=== PATIENT | female | born 1995 | race Caucasian/White ===

== ENCOUNTER 2021-10-19 07:45 | Outpatient (CLI) | payer OTHER, SELFPAY ==
--- NOTE | 2021-10-19 07:50 | US_ITS ---
STUDY: ULTRASOUND OF THE FEMALE PELVIS - COMPLETE REASON FOR EXAM: Female, 26 years old. Infertility LMP: 09/25/2021. TECHNIQUE: Transabdominal and Transvaginal TECHNICAL QUALITY: Adequate. COMPARISON: None. FINDINGS: The uterus is retroverted and is in a midline position. The uterus measures 7.2 cm x 5.2 cm x 4.8 cm. Normal uterine cervix. The endometrium measures 15 mm in thickness, and is hyperechoic. There is no demonstrated endometrial mass. There is no demonstrated myometrial mass. I.U.D. - The patient does not have an I.U.D. The right ovary is visualized. The right ovary measures 2.7 cm x 3.1 cm x 2.5 cm. A dominant follicle is seen in the right ovary measuring 1.9 cm x 1.8cm x 1.6 cm. There is no visualized right adnexal mass or complex lesion. There is normal arterial and normal venous vascularity. The left ovary is visualized. The left ovary measures 2.6 cm x 2.4 cm x 1.4 cm. There is no left ovarian cyst or ovarian mass. There is no visualized left adnexal mass or complex lesion. There is normal arterial and normal venous vascularity. There is minimal fluid in the cul-de-sac. The pre void volume of the bladder was 446 ml. US/Pelvic (Non ) IMPRESSION: A dominant follicle measuring 1.9 cm x 1.8 cm x 1.6 cm is seen in the right ovary. Trace amount of free fluid in the cul-de-sac. Electronically Signed: Gianfranco Herndon MD at 12:13 EST ,
--- NOTE | 2021-10-19 07:50 | US_ITS ---
STUDY: ULTRASOUND OF THE FEMALE PELVIS - COMPLETE REASON FOR EXAM: Female, 26 years old. Infertility LMP: 09/25/2021. TECHNIQUE: Transabdominal and Transvaginal TECHNICAL QUALITY: Adequate. COMPARISON: None. FINDINGS: The uterus is retroverted and is in a midline position. The uterus measures 7.2 cm x 5.2 cm x 4.8 cm. Normal uterine cervix. The endometrium measures 15 mm in thickness, and is hyperechoic. There is no demonstrated endometrial mass. There is no demonstrated myometrial mass. I.U.D. - The patient does not have an I.U.D. The right ovary is visualized. The right ovary measures 2.7 cm x 3.1 cm x 2.5 cm. A dominant follicle is seen in the right ovary measuring 1.9 cm x 1.8cm x 1.6 cm. There is no visualized right adnexal mass or complex lesion. There is normal arterial and normal venous vascularity. The left ovary is visualized. The left ovary measures 2.6 cm x 2.4 cm x 1.4 cm. There is no left ovarian cyst or ovarian mass. There is no visualized left adnexal mass or complex lesion. There is normal arterial and normal venous vascularity. There is minimal fluid in the cul-de-sac. The pre void volume of the bladder was 446 ml. US/Transvaginal Non- IMPRESSION: A dominant follicle measuring 1.9 cm x 1.8 cm x 1.6 cm is seen in the right ovary. Trace amount of free fluid in the cul-de-sac. Electronically Signed: Gianfranco Herndon MD at 12:13 EST ,
== END 2021-10-19 23:59 | disposition home or self-care (01) ==
LOC: US 07:47
PROVIDERS: Referring Provider Obstetrics & Gynecology; Visit Provider Obstetrics & Gynecology
DX: N94.6 Dysmenorrhea, unspecified (principal)
CPT/HCPCS: 76830; 76856

== ENCOUNTER 2021-11-25 10:29 | Outpatient (CLI) | payer OTHER, SELFPAY ==
[2021-11-25 11:48] LABS: Prolactin 16.7 ng/mL; Thyroid Stim Hormone (TSH) 2.33 uIU/mL (0.358-3.74)
== END 2021-11-25 23:59 | disposition home or self-care (01) ==
LOC: LAB 10:31
PROVIDERS: Referring Provider Obstetrics & Gynecology; Visit Provider Obstetrics & Gynecology
DX: Z31.81 Encounter for male factor infertility in female patient (principal); N94.6 Dysmenorrhea, unspecified
CPT/HCPCS: 84146; 84443

== ENCOUNTER → 2022-07-01 | Outpatient (CLI) | payer OTHER, SELFPAY | END | disposition home or self-care (01) | LOC: LABSPEC 16:20 | PROVIDERS: Referring Provider Obstetrics & Gynecology; Visit Provider Obstetrics & Gynecology | DX: R10.9 Unspecified abdominal pain (principal) | CPT/HCPCS: 87077; 87086; 87088 ==

== ENCOUNTER → 2023-02-20 | Outpatient (CLI) | payer OTHER, SELFPAY ==
[2023-02-23 16:09] LABS: HPV APTIMA, High Risk Negative (Negative)
== END | disposition home or self-care (01) ==
LOC: LABSPEC 09:59
PROVIDERS: Referring Provider Obstetrics & Gynecology; Visit Provider Obstetrics & Gynecology
DX: Z12.4 Encounter for screening for malignant neoplasm of cervix (principal)
CPT/HCPCS: 87624; 88175; G0145

== ENCOUNTER → 2023-04-27 | Outpatient (CLI) | payer OTHER, SELFPAY ==
[2023-04-27 17:43] LABS: Absolute Lymphocyte Count 1.44 X10^3/uL (0.83-4.51); Absolute Neutrophil Count 3.8 X10^3/uL (2.0-7.7); Basophil# 0.06 X10^3/uL; Eosinophil# 0.37 X10^3/uL; Hematocrit 44.2 % (37-47); Hemoglobin 13.7 g/dL (12.0-15.0); Lymphocyte # 1.44 X10^3/ul (0.83-4.51); Lymphocyte % 23.3 % (19-41); Mean Corpuscular Hgb 26.4 pg (27.0-32.0); Mean Corpuscular Volume 85.3 fL (81-99); Mean Platelet Vol. 11.6 fl (6.2-12.0); Monocyte# 0.49 X10^3/uL; Monocyte% 7.9 % (0-10); NRBC Flagged by Analyzer 0 % (0-5); Neutrophil # 3.81 X10^3/uL (2.7-7.7); Neutrophil % 61.6 % (47-70); Platelet Count 240 K/mm3 (150-450); RBC Distribution Width CV 12.7 % (11.6-14.6); RBC Distribution Width SD 39.5 fl (35.1-43.9); Red Blood Count 5.18 M/mm3 (4.2-5.4); White Blood Count 6.2 K/mm3 (4.4-11.0)
[2023-04-27 17:58] LABS: Erythrocyte Sedimentation Rate 9 mm/hr (0-30)
[2023-04-27 18:10] LABS: Vitamin B12 497 pg/mL (211-911)
[2023-04-27 18:32] LABS: ALB/GLOB Ratio 1.3 RATIO (0.9-2.4); AST(SGOT) 16 U/L (15-37); Alanine Aminotransfer ALT/SGPT 24 U/L (13-56); Albumin, Serum 4.4 g/dL (3.2-5.0); Alkaline Phosphatase 39 U/L (45-117); Anion Gap 7 (5-15); BUN 8 mg/dL (7-18); BUN/Creat Ratio 11.2 RATIO (10-20); CRP < 2.90 mg/L (0.0-3.0); Calcium,Total 9.5 mg/dL (8.5-10.1); Chloride 105 mmol/L (98-107); Creatinine, Serum 0.71 mg/dL (0.55-1.02); EST Glomerular Filtration Rate 102 mL/min (>60); Est Glom Filt Rate - Afr Amer 124 mL/min (>60); Ferritin 11 ng/mL (8-252); Globulin 3.3 g/dL (2.2-4.2); Glucose 100 mg/dL (74-106); Magnesium 2.5 mg/dL (1.6-2.6); Potassium 3.9 mmol/L (3.5-5.1); Protein, Total 7.7 g/dL (6.4-8.2); Rheumatoid Factor < 10.0 IU/mL (<15); Sodium Level 138 mmol/L (136-145); Thyroid Stim Hormone (TSH) 1.27 uIU/mL (0.358-3.74)
[2023-05-01 15:07] LABS: ANTINUCLEAR ANTIBODIES DIRECT Positive (Negative); Anti-Centromere B Ab 0.5 AI (0.0-0.9); Anti-Chromatin <0.2 AI (0.0-0.9); Anti-Jo <0.2 AI (0.0-0.9); Anti-Scleroderma-70 AB <0.2 AI (0.0-0.9); Anti-dsDNA Ab <1 IU/mL (0-9); SJOGREN'S Anti-SS-A test < 0.2 AI (0.0-0.9); SJOGREN'S Anti-SS-B test < 0.2 AI (0.0-0.9); Smith Ab <0.2 AI (0.0-0.9)
== END | disposition home or self-care (01) ==
LOC: MFPLAB 15:24
PROVIDERS: PCP Family Medicine; Visit Provider Family Medicine
DX: M25.50 Pain in unspecified joint (principal)
CPT/HCPCS: 36415; 80053; 82306; 82607; 82728; 83735; 84443; 85025; 85652; 86038; 86140; 86225; 86235; 86431

== ENCOUNTER → 2023-05-30 | Outpatient (CLI) | payer OTHER, SELFPAY | END | disposition home or self-care (01) | LOC: LABSPEC 15:19 | PROVIDERS: PCP Family Medicine; Referring Provider Advanced Practice Midwife; Visit Provider Advanced Practice Midwife | DX: R30.0 Dysuria (principal) | CPT/HCPCS: 87077; 87086; 87088; 87186 ==

== ENCOUNTER → 2023-12-06 | Outpatient (CLI) | payer OTHER, SELFPAY ==
[2023-12-10 10:07] LABS: Chlamydia By Nucleic Acid AMP Negative (Negative); Gonococcus By Nucleic Acid AMP Negative (Negative)
== END | disposition home or self-care (01) ==
LOC: LAB 14:06
PROVIDERS: PCP Family Medicine; Referring Provider Registered Nurse; Visit Provider Registered Nurse
DX: O09.90 Supervision of high risk pregnancy, unspecified, unspecified trimester (principal); Z3A.00 Weeks of gestation of pregnancy not specified
CPT/HCPCS: 87086; 87491; 87591

== ENCOUNTER → 2023-12-19 | Outpatient (CLI) | payer OTHER, SELFPAY ==
[2023-12-19 08:23] LABS: Absolute Lymphocyte Count 1.89 X10^3/uL (0.83-4.51); Absolute Neutrophil Count 6.7 X10^3/uL (2.0-7.7); Basophil# 0.04 X10^3/uL; Basophil% 0.4 % (0-1); Eosinophil# 0.14 X10^3/uL; Eosinophils% 1.5 % (0-5); Hematocrit 37.9 % (37-47); Hemoglobin 12.4 g/dL (12.0-15.0); Lymphocyte # 1.89 X10^3/ul (0.83-4.51); Lymphocyte % 19.8 % (19-41); Mean Corp Hgb Conc 32.7 g/dL (32-36); Mean Corpuscular Hgb 27.6 pg (27.0-32.0); Mean Corpuscular Volume 84.4 fL (81-99); Monocyte# 0.79 X10^3/uL; Monocyte% 8.3 % (0-10); NRBC Flagged by Analyzer 0 % (0-5); Neutrophil # 6.65 X10^3/uL (2.7-7.7); Neutrophil % 69.8 % (47-70); Platelet Count 252 K/mm3 (150-450); RBC Distribution Width SD 36.6 fl (35.1-43.9); Red Blood Count 4.49 M/mm3 (4.2-5.4); White Blood Count 9.5 K/mm3 (4.4-11.0)
[2023-12-19 09:47] LABS: HIV - WCH Non-Reactive (Nonreactive); Hepatitis B Surface Antigen Non-Reactive (Nonreactive); Hepatitis C Antibody Non-Reactive (Nonreactive); Rubella IgG Reactive (Nonreactive); Syphilis Antibodies Non-reactive
== END | disposition home or self-care (01) ==
PROVIDERS: PCP Family Medicine; Referring Provider Registered Nurse; Visit Provider Registered Nurse
DX: O09.90 Supervision of high risk pregnancy, unspecified, unspecified trimester (principal); Z3A.00 Weeks of gestation of pregnancy not specified
CPT/HCPCS: 36415; 85025; 86703; 86762; 86780; 86803; 86850; 86900; 86901; 87340

== ENCOUNTER → 2024-02-21 | Outpatient (CLI) | payer OTHER, SELFPAY ==
--- NOTE | 2024-02-21 12:18 | US_ITS ---
STUDY: SECOND AND THIRD TRIMESTER OBSTETRICAL ULTRASOUND REASON FOR EXAM: Female, 29 years old Anatomy Scan LMP: October 04, 2023. TECHNIQUE: Transabdominal and Transvaginal TECHNICAL QUALITY: Adequate. PRIOR ULTRASOUND: None. FINDINGS: There is a single intrauterine fetus. The fetus is in a cephalic presentation. There is demonstrated cardiac activity with a heart rate of 141 bpm. There is a normal amniotic fluid volume. The largest amniotic fluid pocket measures 5.7 cm x 6.7 cm. The amniotic fluid index (SHARON) is within normal limits. The placenta is posterior in location and is not low lying. There are Grade 0 placental changes. The cervix measures 3.7 cm in length. The bilateral adnexal regions are normal. BIOMETRY: BPD: 4.9 cm: 21 weeks, 0 days HC: 17.6 cm: 20 weeks, 1 days AC: 16.2 cm: 21 weeks, 2 days FL: 3.4 cm: 20 weeks, 4 days CI: 82% FL/BPD: 69% FL/HC: FL/AC: 21% HC/AC: 1.08 age by current US: 20 weeks, 5 days. GHASSAN by current US: July 05, 2024. Estimated weight: 394 grams, +/- 59 grams, 92 %. Age by LMP: 20 weeks, 5 days. GHASSAN by LMP: July 05, 2024 ANATOMY: Gender: Male Cranium: Normal lateral ventricles. Normal choroid plexus. Normal cerebellum. Normal cisterna magna. Normal face, nose and lips. Chest: Normal 4-chamber heart. Abdomen/Pelvis: Normal diaphragm. Normal stomach. Normal abdominal wall. Normal cord insertion. Normal 3 vessel cord. Normal kidneys. Normal bladder. Spine: Normal cervical spine. Normal thoracic spine. Normal lumbar spine. Normal sacrum. Extremities: Normal bilateral upper extremities. Normal bilateral lower extremities. US/OB Anatomy w/ Transvaginal IMPRESSION: Single live intrauterine gestation with mean gestational age of 20 weeks and 5 days. Electronically Signed: Gianfranco Herndon MD at 15:33 EDT ,
== END | disposition home or self-care (01) ==
LOC: OPUS 12:18
PROVIDERS: Referring Provider Obstetrics & Gynecology; Visit Provider Obstetrics & Gynecology
DX: O09.90 Supervision of high risk pregnancy, unspecified, unspecified trimester (principal); Z3A.00 Weeks of gestation of pregnancy not specified
CPT/HCPCS: 76805; 76817

== ENCOUNTER → 2024-04-17 | Outpatient (CLI) | payer OTHER, SELFPAY ==
[2024-04-17 09:01] LABS: Absolute Lymphocyte Count 1.08 X10^3/uL (0.83-4.51); Basophil# 0.03 X10^3/uL; Basophil% 0.4 % (0-1); Eosinophils% 1.2 % (0-5); Hematocrit 34.3 % (37-47); Hemoglobin 10.8 g/dL (12.0-15.0); Lymphocyte # 1.08 X10^3/ul (0.83-4.51); Lymphocyte % 13.4 % (19-41); Mean Corp Hgb Conc 31.5 g/dL (32-36); Mean Corpuscular Hgb 27.4 pg (27.0-32.0); Mean Corpuscular Volume 87.1 fL (81-99); Mean Platelet Vol. 9.6 fl (6.2-12.0); Monocyte% 9.9 % (0-10); NRBC Flagged by Analyzer 0 % (0-5); Neutrophil # 5.97 X10^3/uL (2.7-7.7); Neutrophil % 74.1 % (47-70); Platelet Count 266 K/mm3 (150-450); RBC Distribution Width CV 12.1 % (11.6-14.6); RBC Distribution Width SD 38.8 fl (35.1-43.9); Red Blood Count 3.94 M/mm3 (4.2-5.4); White Blood Count 8.1 K/mm3 (4.4-11.0)
[2024-04-17 09:26] LABS: Glucose Challenge Gest 1H 50g 110 mg/dL (70-140)
[2024-04-17 09:53] LABS: HIV - WCH Non-Reactive (Nonreactive); Syphilis Antibodies Non-reactive
== END | disposition home or self-care (01) ==
LOC: LAB 08:20
PROVIDERS: Referring Provider Nurse Practitioner Women's Health; Visit Provider Nurse Practitioner Women's Health
DX: O26.892 Other specified pregnancy related conditions, second trimester (principal); Z67.91 Unspecified blood type, Rh negative; Z3A.25 25 weeks gestation of pregnancy; Z13.1 Encounter for screening for diabetes mellitus
CPT/HCPCS: 36415; 82950; 85025; 86703; 86780; 86850; 86900; 86901

== ENCOUNTER → 2024-04-24 | Outpatient (CLI) | payer OTHER, SELFPAY ==
--- NOTE | 2024-04-24 16:25 | US_ITS ---
We are attempting to reach an attending provider to discuss findings. An addendum with communication details will be sent when the communication is complete. STUDY: SECOND AND THIRD TRIMESTER OBSTETRICAL ULTRASOUND - LIMITED REASON FOR EXAM: Female, 29 years old connective tissue disease in LMP: Established due date 07/10/2024 PRIOR ULTRASOUND: 02/21/2024 TECHNIQUE: Transabdominal TECHNICAL QUALITY: Adequate. FINDINGS: Single fetus identified in the uterus cephalic presentation. heart rate 164 bpm. Amniotic fluid index 17.23 cm. Placenta posterior. Grossly intact. No previa. Cervical length: 2.2 cm. The os is closed. BIOMETRY: BPD: 7.88 cm: 31 weeks, 4 days HC: 29.92 cm: 33 weeks, 1 days AC: 27.22 cm: 31 weeks, 2 days FL: 5.60 cm: 29 weeks, 3 days Estimated weight: 1655 grams, +/- 248 grams, 93 percentile. US/OB Limited With Biometrics IMPRESSION: Single live intrauterine at estimated gestational age 31 weeks 3 days based on composite measurements. Cervical length 2.2 cm. SAHRON 17.2. Electronically Signed: Maribell Vargas MD at 23:28 EDT ,
== END | disposition home or self-care (01) ==
LOC: US 16:25
PROVIDERS: Referring Provider Obstetrics & Gynecology; Visit Provider Obstetrics & Gynecology
DX: M35.9 Systemic involvement of connective tissue, unspecified (principal)
CPT/HCPCS: 76816

== ENCOUNTER 2024-05-01 10:50 | Outpatient (CLI) | payer OTHER, SELFPAY ==
[2024-05-01 11:30] VITALS: BMI 26.3
[2024-05-01] MEDS: Betamethasone/Betamethasone 30 MG/5 ML Vial 12 MG IM (12:02)
== END 2024-05-01 12:05 | disposition home or self-care (01) ==
LOC: WPOUT 10:54 → WP 11:12
PROVIDERS: Referring Provider Obstetrics & Gynecology; Visit Provider Obstetrics & Gynecology
DX: O36.8330 Maternal care for abnormalities of the fetal heart rate or rhythm, third trimester, not applicable or unspecified (principal); O99.013 Anemia complicating pregnancy, third trimester; O09.813 Supervision of pregnancy resulting from assisted reproductive technology, third trimester; O26.893 Other specified pregnancy related conditions, third trimester; Z67.11 Type A blood, Rh negative; O99.713 Diseases of the skin and subcutaneous tissue complicating pregnancy, third trimester; M35.89 Other specified systemic involvement of connective tissue; Z3A.30 30 weeks gestation of pregnancy; Z79.899 Other long term (current) drug therapy
CPT/HCPCS: 96372; 99221; G0378; J0702

== ENCOUNTER 2024-05-02 12:07 | Outpatient (CLI) | payer OTHER, SELFPAY ==
[2024-05-02 12:22] VITALS: BMI 26.2
[2024-05-02 12:36] VITALS: BP 110/73; PULSE 88
[2024-05-02] MEDS: Betamethasone/Betamethasone 30 MG/5 ML Vial 12 MG IM (12:41)
== END 2024-05-02 12:45 | disposition home or self-care (01) ==
LOC: WPOUT 12:09 → WP 12:10
PROVIDERS: Referring Provider Obstetrics & Gynecology; Visit Provider Obstetrics & Gynecology
DX: O36.8330 Maternal care for abnormalities of the fetal heart rate or rhythm, third trimester, not applicable or unspecified (principal); O99.013 Anemia complicating pregnancy, third trimester; O09.813 Supervision of pregnancy resulting from assisted reproductive technology, third trimester; Z67.11 Type A blood, Rh negative; O99.713 Diseases of the skin and subcutaneous tissue complicating pregnancy, third trimester; M35.89 Other specified systemic involvement of connective tissue; Z3A.30 30 weeks gestation of pregnancy; Z79.899 Other long term (current) drug therapy
CPT/HCPCS: 96372; 99221; G0378; J0702

== ENCOUNTER → 2024-05-09 | Outpatient (CLI) | payer OTHER, SELFPAY ==
--- NOTE | 2024-05-09 10:50 | US_ITS ---
STUDY: FIRST TRIMESTER OBSTETRICAL ULTRASOUND REASON FOR EXAM: Female, 29 years old cervical length -- 1 week TECHNIQUE: Transvaginal TECHNICAL QUALITY: Adequate. PRIOR ULTRASOUND: None. FINDINGS: Cervical length measures 2.5 cm. US/Transvaginal w/Preg US IMPRESSION: Cervical length measures 2.5 cm. Electronically Signed: Gianfranco Herndon MD at 13:34 EDT ,
== END | disposition home or self-care (01) ==
LOC: US 10:49
PROVIDERS: Referring Provider Obstetrics & Gynecology; Visit Provider Obstetrics & Gynecology
DX: O26.879 Cervical shortening, unspecified trimester (principal); Z3A.00 Weeks of gestation of pregnancy not specified
CPT/HCPCS: 76817

== ENCOUNTER → 2024-05-20 | Outpatient (CLI) | payer OTHER, SELFPAY ==
--- NOTE | 2024-05-20 16:29 | US_ITS ---
EXAM: US , LIMITED CLINICAL INDICATION: connective tissue disorder in TECHNIQUE: Real-time limited ultrasound of the maternal uterus with image documentation. COMPARISON: 04/24/2024. FINDINGS: FETUS: Single intrauterine gestation. GESTATIONAL AGE: Composite gestational age is 35 weeks six days. GHASSAN: 06/18/2024. EFW: Estimated weight is 2537 g corresponding to the 94th percentile. BPD: 35 weeks six days. HC: 36 weeks five days. AC: 35 weeks two days. FL: 33 weeks one day. POSITION: Cephalic presentation. HEART RATE: heart rate is 144 bpm. PLACENTA: Placenta appears to be fundal and left lateral. No evidence of placenta previa. AMNIOTIC FLUID: Amniotic fluid index is 14.1 cm. CERVIX: Cervix not visualized. US/OB Limited With Biometrics IMPRESSION: Single live intrauterine at approximately 35 weeks six days. Appropriate interval growth since previous exam. No specific abnormality. Electronically Signed: Jeramy Hanna MD at 4:29 EDT ,
== END | disposition home or self-care (01) ==
LOC: US 16:28
PROVIDERS: Referring Provider Obstetrics & Gynecology; Visit Provider Obstetrics & Gynecology
DX: M35.9 Systemic involvement of connective tissue, unspecified (principal)
CPT/HCPCS: 76816

== ENCOUNTER → 2024-06-13 | Outpatient (CLI) | payer OTHER, SELFPAY ==
--- NOTE | 2024-06-13 11:45 | VDLE_ITS ---
Reason For Study: Right leg swelling RIGHT GSV is normal. CFV is compressible, spontaneous, phasic, competent and demonstrates normal augmentation. FV is compressible, spontaneous, phasic, competent and demonstrates normal augmentation. POP V is compressible, spontaneous, phasic, competent and demonstrates normal augmentation. T/P Trunk is compressible. PTV is compressible. RT PerV is compressible. Procedure This is a venous duplex using B-mode, color flow and spectral Doppler. Exam performed in department. A preliminary report was called and/or faxed to Mary. VL/Venous Duplex US, Unilateral Interpretation Summary Deep veins of the right lower extremity are patent and compressible segmentally . There is no evidence of right lower extremity deep vein thrombosis. The right great sapheno us vein appears patent and compressible segmentally. Ordering Physician: Shi Alcaraz Performed By: Jazz Cope RVT
== END | disposition home or self-care (01) ==
PROVIDERS: Referring Provider Obstetrics & Gynecology; Visit Provider Obstetrics & Gynecology
DX: O09.92 Supervision of high risk pregnancy, unspecified, second trimester (principal); M79.89 Other specified soft tissue disorders; Z3A.00 Weeks of gestation of pregnancy not specified
CPT/HCPCS: 87081; 93971

== ENCOUNTER → 2024-06-20 | Outpatient (CLI) | payer OTHER, SELFPAY ==
--- NOTE | 2024-06-20 17:03 | US_ITS ---
STUDY: SECOND AND THIRD TRIMESTER OBSTETRICAL ULTRASOUND - LIMITED REASON FOR EXAM: Female, 29 years old. GROWTH PRIOR ULTRASOUND: 05.20.24 TECHNIQUE: Transabdominal TECHNICAL QUALITY: Adequate. FINDINGS: There is a single intrauterine fetus. The fetus is in a cephalic presentation. There is demonstrated cardiac activity with a heart rate of 167 bpm. There is a normal amniotic fluid volume. The largest amniotic fluid pocket measures 6.9 cm. The amniotic fluid index (SHARON) is 16.4 cm. The placenta is posterior fundal There are Grade 3 placental changes. The cervix is obscured by overlying bowel gas and cannot be identified. . BIOMETRY: BPD: 92 mm: 37 weeks, 3 days HC: 342 mm: 39 weeks, 3 days AC: 365 mm: 40 weeks, 3 days FL: 71 mm: 36 weeks, 4 days CI: NA FL/AC: 19.5 FL/BPD: 77.4 HC/AC: 0.94 age by current US: 38 weeks, 3 days. GHASSAN by current US: 10.28.24. Estimated weight: 3699 grams, +/- 555 grams, 94 %. Age by LMP: 37 weeks, 1 days. GHASSAN by LMP: 11.6.24 US/OB Limited With Biometrics IMPRESSION: There is a single live intrauterine with a heart rate of 167 bpm. EFW is greater than 75%. Large for gestational age (LGA) should be considered. Electronically Signed: Bart Caballero MD at 19:52 EDT ,
== END | disposition home or self-care (01) ==
LOC: US 17:01
PROVIDERS: Referring Provider Obstetrics & Gynecology; Visit Provider Obstetrics & Gynecology
DX: Z34.90 Encounter for supervision of normal pregnancy, unspecified, unspecified trimester (principal)
CPT/HCPCS: 76816

== ENCOUNTER 2024-07-05 19:10 | Inpatient (IN) | payer OTHER, SELFPAY ==
[2024-05-02 12:36] VITALS: RESP 16; TEMP 36.4
[2024-07-05 19:11] VITALS: BMI 28.8
[2024-07-05 19:20] VITALS: BP 128/85; PULSE 101; RESP 14; TEMP 36.7
[2024-07-05 19:21] VITALS: PULSE 105; O2SAT 97
[2024-07-05] MEDS: Lactated Ringers 1,000 ML 50 ML IV (19:30)
[2024-07-05 19:51] LABS: Absolute Neutrophil Count 6.4 X10^3/uL (2.0-7.7); Basophil# 0.03 X10^3/uL; Basophil% 0.4 % (0-1); Eosinophil# 0.02 X10^3/uL; Eosinophils% 0.2 % (0-5); Hematocrit 35.8 % (37-47); Hemoglobin 11.2 g/dL (12.0-15.0); Lymphocyte % 14.3 % (19-41); Mean Corp Hgb Conc 31.3 g/dL (32-36); Mean Corpuscular Hgb 24.8 pg (27.0-32.0); Mean Corpuscular Volume 79.4 fL (81-99); Mean Platelet Vol. 10.3 fl (6.2-12.0); Monocyte# 0.67 X10^3/uL; NRBC Flagged by Analyzer 0 % (0-5); Neutrophil # 6.39 X10^3/uL (2.7-7.7); Neutrophil % 76.4 % (47-70); Platelet Count 261 K/mm3 (150-450); RBC Distribution Width CV 14.1 % (11.6-14.6); RBC Distribution Width SD 40.6 fl (35.1-43.9); Red Blood Count 4.51 M/mm3 (4.2-5.4); White Blood Count 8.4 K/mm3 (4.4-11.0)
[2024-07-05] MEDS: miSOPROStol 25 MCG TABLET VAGINAL (20:05)
[2024-07-05 20:26] LABS: Syphilis Antibodies Non-reactive
--- NOTE | 2024-07-05 21:06 | HP.PCM_ITS ---
HPI - General General Date of Admission: 07/05/24 HPI Narrative DIMA GUEVARA, is a 29 F who presents for IOL secondary to IVF , has LGA with AC over 99 percentile. EFW 4250 g no vb lof good fm no regular ctx PFSH Medical History (Updated 07/05/24 @ 20:10 by Jamila Martinez) Autoimmune connective tissue disorder In vitro fertilization Anemia affecting Home Medications ?Medication ?Instructions ?Recorded ?Last Taken ?Type hydroxychloroquine 200 mg tablet 300 mg PO DAILY connective tissue 11/28/23 07/01/24 History (Plaquenil) disorder multivit-min no.71-iron fum 28 1 cap PO DAILY pregnanc 11/28/23 07/01/24 History mg-folate no.1 1 mg-dha 300 mg capsule (PNV-[place]) cyclobenzaprine 10 mg tablet 10 mg PO TID PRN muscle spasm #30 06/16/24 06/28/24 Rx tabs Allergy/AdvReac Type Severity Reaction Status Date / Time No Known Allergies Allergy Verified 07/05/24 20:07 Family History Father Diabetes Surgical History [place] teeth removed Hx of tonsillectomy Social History adopted: No household members: spouse current occupational status: employed current occupation: L[employer]D 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: Reports systems reviewed and no addt'l complaints, except as documented Eyes Eyes: Denies change in vision ENT HEENT: Reports systems reviewed and no addt'l complaints, except as documented; Denies headache(s) Cardiovascular Cardiovascular: Reports systems reviewed and no addt'l complaints, except as documented; Denies chest pain or dyspnea Respiratory/Chest Respiratory/Chest: Reports systems reviewed and no addt'l complaints, except as documented Gastrointestinal Gastrointestinal: Reports systems reviewed and no addt'l complaints, except as documented; Denies abdominal pain Genitourinary Genitourinary: Reports systems reviewed and no addt'l complaints, except as documented, contractions Details: present (irregular) and movement Details: present; Denies dysuria or genital lesions Musculoskeletal Musculoskeletal: Reports systems reviewed and no addt'l complaints, except as documented Neurologic Neurologic: Reports systems reviewed and no addt'l complaints, except as documented Endocrine Endocrinology: Reports systems reviewed and no addt'l complaints, except as documented Vital Signs Vital Signs Vital Signs: 07/05/24 19:20 07/05/24 19:20 07/05/24 19:20 Temperature Temperature Source Temporal Pulse Rate 101 H Respiratory Rate Blood Pressure 128/85 H BP Systolic 128 BP Diastolic 85 Pulse Ox 07/05/24 19:20 07/05/24 19:20 07/05/24 19:21 Temperature 98.1 F Temperature Source Pulse Rate 105 H Respiratory Rate 14 Blood Pressure BP Systolic BP Diastolic Pulse Ox 07/05/24 19:21 Temperature Temperature Source Pulse Rate Respiratory Rate Blood Pressure BP Systolic BP Diastolic Pulse Ox 97 Weight Weight: 157 lb 8 oz Body Mass Index (BMI) 28.8 Physical Exam Const alert, oriented x3, no apparent distress and healthy appearing HEENT normocephalic and moist oral mucous membranes Head and Scalp: atraumatic Neck full ROM Lymph Lymphatic: no lymphadenopathy noted Chest inspection of chest normal Resp normal respiratory effort Cardio regular rate GI Inspection: gravid external exam normal Manual OB Exam: estimated gestational size appropriate and presentation cephalic Extremity normal to inspection General Extremity: Negative for edema Skin no rashes or lesions noted Psych mental status grossly normal Results Lab / Micro Data 07/05/24 19:30 Labs: Laboratory Results - last 24 hr 07/05/24 19:30: WBC 8.4, RBC 4.51, Hgb 11.2 L, Hct 35.8 L, MCV 79.4 L, MCH 24.8 L, MCHC 31.3 L, RDW Std Deviation 40.6, RDW Coeff of Angie 14.1, Plt Count 261, MPV 10.3, Immature Gran % (Auto) 0.700, Neut % (Auto) 76.4 H, Lymph % (Auto) 14.3 L, [place] % (Auto) 8.0, Eos % (Auto) 0.2, Baso % (Auto) 0.4, Absolute Neuts (auto) 6.4, Absolute Lymphs (auto) 1.20, Nucleated RBC % 0, Syphilis Total Ab Non-reactive, Blood Type A NEGATIVE Assessment & Plan Assessment/Plan (1) LGA (large for gestational age) fetus: (2) Anemia affecting : (3) resulting from in-vitro fertilization: (4) Supervision of high-risk : QUALIFIERS: Trimester: second trimester Qualified Code(s): O09.92 - Supervision of high risk , unspecified, second trimester (5) : QUALIFIERS: Weeks of gestation: 39 weeks Qualified Code(s): Z 3A.39 - 39 weeks gestation of (6) Rh negative status during : QUALIFIERS: Trimester: second trimester Qualified Code(s): O 26.892 - Other specified related conditions, second trimester; Z67.91 - Unspecified blood type, Rh negative (7) Undifferentiated connective tissue disease: PLAN: Plan Patient presents IOL, plan management for with cytotec then pitocin. Pain management: plans epidural. GBS negative. Management of any complications: IVF LGA I have reviewed the [facility] and made any clinically relevant updates.
--- NOTE | 2024-07-05 21:06 | HP.PCM_ITS ---
HPI - General General Date of Admission: 07/05/24 HPI Narrative DIMA GUEVARA, is a 29 F who presents for IOL secondary to IVF , has LGA with AC over 99 percentile. EFW 4250 g no vb lof good fm no regular ctx PFSH Medical History (Updated 07/05/24 @ 20:10 by Jamila Martinez) Autoimmune connective tissue disorder In vitro fertilization Anemia affecting Home Medications ?Medication ?Instructions ?Recorded ?Last Taken ?Type hydroxychloroquine 200 mg tablet 300 mg PO DAILY connective tissue 11/28/23 07/01/24 History (Plaquenil) disorder multivit-min no.71-iron fum 28 1 cap PO DAILY pregnanc 11/28/23 07/01/24 History mg-folate no.1 1 mg-dha 300 mg capsule (PNV-[place]) cyclobenzaprine 10 mg tablet 10 mg PO TID PRN muscle spasm #30 06/16/24 06/28/24 Rx tabs Allergy/AdvReac Type Severity Reaction Status Date / Time No Known Allergies Allergy Verified 07/05/24 20:07 Family History Father Diabetes Surgical History [place] teeth removed Hx of tonsillectomy Social History adopted: No household members: spouse current occupational status: employed current occupation: L[employer]D [employer] pets and animals: Yes (Avoid litterbox) pets and animals: cat(s) history of recent travel: No sexually active: Yes Smoking Status: Never smoker alcohol intake: current details: not while substance use type: does not use well-balanced diet: daily or most days caffeine: No eating out: 1-3 times/week during the past year weight has: remained stable what type of physical activity do you participate in: none nini/baptism: Mosque seatbelt use: always do you feel safe at home: Yes 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: Reports systems reviewed and no addt'l complaints, except as documented Eyes Eyes: Denies change in vision ENT HEENT: Reports systems reviewed and no addt'l complaints, except as documented; Denies headache(s) Cardiovascular Cardiovascular: Reports systems reviewed and no addt'l complaints, except as documented; Denies chest pain or dyspnea Respiratory/Chest Respiratory/Chest: Reports systems reviewed and no addt'l complaints, except as documented Gastrointestinal Gastrointestinal: Reports systems reviewed and no addt'l complaints, except as documented; Denies abdominal pain Genitourinary Genitourinary: Reports systems reviewed and no addt'l complaints, except as documented, contractions Details: present (irregular) and movement Details: present; Denies dysuria or genital lesions Musculoskeletal Musculoskeletal: Reports systems reviewed and no addt'l complaints, except as documented Neurologic Neurologic: Reports systems reviewed and no addt'l complaints, except as documented Endocrine Endocrinology: Reports systems reviewed and no addt'l complaints, except as documented Vital Signs Vital Signs Vital Signs: 07/05/24 19:20 07/05/24 19:20 07/05/24 19:20 Temperature Temperature Source Temporal Pulse Rate 101 H Respiratory Rate Blood Pressure 128/85 H BP Systolic 128 BP Diastolic 85 Pulse Ox 07/05/24 19:20 07/05/24 19:20 07/05/24 19:21 Temperature 98.1 F Temperature Source Pulse Rate 105 H Respiratory Rate 14 Blood Pressure BP Systolic BP Diastolic Pulse Ox 07/05/24 19:21 Temperature Temperature Source Pulse Rate Respiratory Rate Blood Pressure BP Systolic BP Diastolic Pulse Ox 97 Weight Weight: 157 lb 8 oz Body Mass Index (BMI) 28.8 Physical Exam Const alert, oriented x3, no apparent distress and healthy appearing HEENT normocephalic and moist oral mucous membranes Head and Scalp: atraumatic Neck full ROM Lymph Lymphatic: no lymphadenopathy noted Chest inspection of chest normal Resp normal respiratory effort Cardio regular rate GI Inspection: gravid external exam normal Manual OB Exam: estimated gestational size appropriate and presentation cephalic Extremity normal to inspection General Extremity: Negative for edema Skin no rashes or lesions noted Psych mental status grossly normal Results Lab / Micro Data 07/05/24 19:30 Labs: Laboratory Results - last 24 hr 07/05/24 19:30: WBC 8.4, RBC 4.51, Hgb 11.2 L, Hct 35.8 L, MCV 79.4 L, MCH 24.8 L, MCHC 31.3 L, RDW Std Deviation 40.6, RDW Coeff of Angie 14.1, Plt Count 261, MPV 10.3, Immature Gran % (Auto) 0.700, Neut % (Auto) 76.4 H, Lymph % (Auto) 14.3 L, [place] % (Auto) 8.0, Eos % (Auto) 0.2, Baso % (Auto) 0.4, Absolute Neuts (auto) 6.4, Absolute Lymphs (auto) 1.20, Nucleated RBC % 0, Syphilis Total Ab Non-reactive, Blood Type A NEGATIVE Assessment & Plan Assessment/Plan (1) LGA (large for gestational age) fetus: (2) Anemia affecting : (3) resulting from in-vitro fertilization: (4) Supervision of high-risk : QUALIFIERS: Trimester: second trimester Qualified Code(s): O09.92 - Supervision of high risk , unspecified, second trimester (5) : QUALIFIERS: Weeks of gestation: 39 weeks Qualified Code(s): Z 3A.39 - 39 weeks gestation of (6) Rh negative status during : QUALIFIERS: Trimester: second trimester Qualified Code(s): O 26.892 - Other specified related conditions, second trimester; Z67.91 - Unspecified blood type, Rh negative (7) Undifferentiated connective tissue disease: PLAN: Plan Patient presents IOL, plan management for with cytotec then pitocin. Pain management: plans epidural. GBS negative. Management of any complications: IVF LGA I have reviewed the [facility] and made any clinically relevant updates.
[2024-07-06] VITALS (101 sets, daily range): BP systolic 92–135; BP diastolic 53–84; PULSE 70–227; RESP 14–18; TEMP 36.3–37.2; O2SAT 80–100
[2024-07-06] MEDS: Lactated Ringers 1,000 ML 999 ML IV (01:30)
[2024-07-06] MEDS: fentaNYL-bupivacaine (epidural) 100 ML BAG EPIDURAL ×3 (03:18→12:47)
--- NOTE | 2024-07-06 04:43 | PCM.PN.BLA ---
Progress Note fb placed, 2-3 80 -1 comfortable with epi cat I tracing doing well.
--- NOTE | 2024-07-06 04:43 | PCM.PN.BLA ---
Progress Note fb placed, 2-3 80 -1 comfortable with epi cat I tracing doing well.
[2024-07-06] MEDS: Acetaminophen 500 MG Tablet PO (12:47)
--- NOTE | 2024-07-06 15:47 | PCM.PN.BLA ---
Progress Note pushing and doing well, q 3 minutes, comfortable, cat I tracing
--- NOTE | 2024-07-06 15:47 | PCM.PN.BLA ---
Progress Note pushing and doing well, q 3 minutes, comfortable, cat I tracing
--- NOTE | 2024-07-06 15:48 | EX.PCM.OBRPT ---
Maternal Data Information GHASSAN Calculator Estimated Delivery Date Method Current WG Current Estimate 07/10/24 Conception 39w 3d
--- NOTE | 2024-07-06 15:48 | EX.PCM.OBRPT ---
Maternal Data Information GHASSAN Calculator Estimated Delivery Date Method Current WG Current Estimate 07/10/24 Conception 39w 3d
--- NOTE | 2024-07-06 16:08 | OB.VAGDELI_ITS ---
Assessment & Plan (1) LGA (large for gestational age) fetus: COMMENT: AC >99th% (2) Anemia affecting : COMMENT: OTC Fe (3) resulting from in-vitro fertilization: COMMENT: transfer date 10/23/23. plan echo , anatomy scan [facility], weekly NSTs after 36 and delivery by 39-40. Echo:infreq PACs. Check FHT twice a week(WP nurse and doing there) (4) Supervision of high-risk : QUALIFIERS: Trimester: second trimester Qualified Code(s): O09.92 - Supervision of high risk , unspecified, second trimester COMMENT: PRR , GHASSAN 07/10/24, boy Cruz Tyler (5) : QUALIFIERS: Weeks of gestation: 39 weeks Qualified Code(s): Z3A. 39 - 39 weeks gestation of COMMENT: DOC ONLY. nl Anatomy, declined genetic & no carrier screening that was positive for both her and her at infertility, patient is carrier for cf, negative. (6) Rh negative status during : QUALIFIERS: Trimester: second trimester Qualified Code(s): O26.892 - Other specified related conditions, second trimester; Z67.91 - Unspecified blood type, Rh negative COMMENT: A Negative, is A Positive, Rhogam @ 28 weeks, and PRN Bleeding (7) Undifferentiated connective tissue disease: COMMENT: on Plaquenil. work up started in fall 2022, is not lupus/RA, positive EDITH. improved with Plaquenil- followed by [place] [facility]. to be seen february 2024 plan montly growth scans Maternal Data Information GHASSAN Calculator Estimated Delivery Date Method Current WG Current Estimate 07/10/24 Conception 39w 4d Vaginal Delivery Maternal Presentation Maternal Presentation: see assessment and plan Vaginal Delivery Information Surgeon/Practitioner: Shi Alcaraz Type of anesthesia: Epidural Estimated Blood Loss: 500 Findings Description of procedure: Patient began pushing and delivered the head in the NESTOR presentation. The head was delivered atraumatically and the shoulders rotated to allow the left shoulder deliver first as the anterior shoulder without difficulty. The anterior and posterior shoulders delivered without complication followed by the rest of the and the infant was placed on the maternal abdomen. Delayed cord clamping was employed for approximately 60 seconds. Cord was clamped and cut and gentle traction was applied to the cord and the placenta delivered spontaneously immediately following it was noted to be intact with three-vessel cord. The perineum and vagina were inspected and was noted to have a significant perineal laceration, a stellate like appearance with bilateral sulcal lacerations and a second -degree laceration with partial disruption of the capsule around the anal sphincter. That was all repaired in the usual fashion with 3-0 vicryl rapide, reinforcing the capusle with interrupted figure of eights and rebuilding the perineum also. . EBL was 500. Patient and infant tolerated delivery well overall Presentation: Vertex Placental Delivery Description: Spontaneous Specimen collected: Yes Description of specimen(s) removed: placenta Event Manager hobbies and crafts sales representative: No Post Vaginal Deli Medications given after delivery: Other (pitocin) Complication Complications: No Multi Select Codes Urinary/Genital Urinary/Genital CPT Codes: 53350 Vaginal Delivery [facility]
--- NOTE | 2024-07-06 16:08 | OB.VAGDELI_ITS ---
Assessment & Plan (1) LGA (large for gestational age) fetus: COMMENT: AC >99th% (2) Anemia affecting : COMMENT: OTC Fe (3) resulting from in-vitro fertilization: COMMENT: transfer date 10/23/23. plan echo , anatomy scan [facility], weekly NSTs after 36 and delivery by 39-40. Echo:infreq PACs. Check FHT twice a week([facility] nurse and doing there) (4) Supervision of high-risk : QUALIFIERS: Trimester: second trimester Qualified Code(s): O09.92 - Supervision of high risk , unspecified, second trimester COMMENT: PRR , GHASSAN 07/10/24, boy Cruz Tyelr (5) : QUALIFIERS: Weeks of gestation: 39 weeks Qualified Code(s): Z3A. 39 - 39 weeks gestation of COMMENT: DOC ONLY. nl Anatomy, declined genetic & no carrier screening that was positive for both her and her at infertility, patient is carrier for cf, negative. (6) Rh negative status during : QUALIFIERS: Trimester: second trimester Qualified Code(s): O26.892 - Other specified related conditions, second trimester; Z67.91 - Unspecified blood type, Rh negative COMMENT: A Negative, is A Positive, Rhogam @ 28 weeks, and PRN Bleeding (7) Undifferentiated connective tissue disease: COMMENT: on Plaquenil. work up started in fall 2022, is not lupus/RA, positive EDITH. improved with Plaquenil- followed by [facility]. to be seen february 2024 plan montly growth scans Maternal Data Information GHASSAN Calculator Estimated Delivery Date Method Current WG Current Estimate 07/10/24 Conception 39w 4d Vaginal Delivery Maternal Presentation Maternal Presentation: see assessment and plan Vaginal Delivery Information Surgeon/Practitioner: Shi Alcaraz Type of anesthesia: Epidural Estimated Blood Loss: 500 Findings Description of procedure: Patient began pushing and delivered the head in the NESTOR presentation. The head was delivered atraumatically and the shoulders rotated to allow the left shoulder deliver first as the anterior shoulder without difficulty. The anterior and posterior shoulders delivered without complication followed by the rest of the and the infant was placed on the maternal abdomen. Delayed cord clamping was employed for approximately 60 seconds. Cord was clamped and cut and gentle traction was applied to the cord and the placenta delivered spontaneously immediately following it was noted to be intact with three-vessel cord. The perineum and vagina were inspected and was noted to have a significant perineal laceration, a stellate like appearance with bilateral sulcal lacerations and a second -degree laceration with partial disruption of the capsule around the anal sphincter. That was all repaired in the usual fashion with 3-0 vicryl rapide, reinforcing the capusle with interrupted figure of eights and rebuilding the perineum also. . EBL was 500. Patient and infant tolerated delivery well overall Presentation: Vertex Placental Delivery Description: Spontaneous Specimen collected: Yes Description of specimen(s) removed: placenta Conductor Symph[employer] incendiary powder mixer: No Post Vaginal Deli Medications given after delivery: Other (pitocin) Complication Complications: No Multi Select Codes Urinary/Genital Urinary/Genital CPT Codes: 98989 Vaginal Delivery [facility]
[2024-07-06] MEDS: Oxytocin 15 Units/NS 250ml 15 UNITS/250 ML IV.SOLN 2 UNITS IV (16:16)
--- NOTE | 2024-07-06 17:44 | PCM.DC ---
Discharge Instructions Diet Discharge Diet: No restrictions Activity Discharge Activity: Return to Normal Activity, May Not Drive (while taking narcotic pain medications.) and May Shower May resume sexual activity in: 4-6 weeks Dressing / Incision Call your doctor if your incision/area has: Continuous Slow Oozing, Sudden Increased Bleeding, Increased Pain/ Swelling, Increased Redness and Foul Smelling Discharge Follow Up Care Please Follow Up With: Shi Alcaraz MD When: Call [phone] to make an appointment with your doctor in 6 weeks. If you had elevated blood pressure or 4th degree laceration, you will need to be seen in 2 weeks. Test Results: Test results from this visit will be discussed in further detail at your follow-up appointment, if applicable. Discharge Plan Admission Admit Date/Time: 07/05/24 19:10 Attending Provider: Shi Alcaraz Primary Care Provider: Care Physician,Makeda Primary Discharge Orders/Prescriptions Prescriptions: No Action hydroxychloroquine [Plaquenil] 200 mg tablet 300 mg PO DAILY Rx Instructions: 1.5 tabs (300mg) orally daily; PNV-[place] 28-1-300 mg capsule 1 cap PO DAILY cyclobenzaprine 10 mg tablet 10 mg PO TID PRN (Reason: muscle spasm) Qty: 30 2RF Referrals / Follow Up: Care Physician,Makeda Primary [Primary Care Provider] - Disposition Disposition (needs filled in before D/C Order can be placed): Home, Self Care
--- NOTE | 2024-07-06 17:44 | PCM.DC ---
Discharge Instructions Diet Discharge Diet: No restrictions Activity Discharge Activity: Return to Normal Activity, May Not Drive (while taking narcotic pain medications.) and May Shower May resume sexual activity in: 4-6 weeks Dressing / Incision Call your doctor if your incision/area has: Continuous Slow Oozing, Sudden Increased Bleeding, Increased Pain/ Swelling, Increased Redness and Foul Smelling Discharge Follow Up Care Please Follow Up With: Shi Alcaraz MD When: Call [phone] to make an appointment with your doctor in 6 weeks. If you had elevated blood pressure or 4th degree laceration, you will need to be seen in 2 weeks. Test Results: Test results from this visit will be discussed in further detail at your follow-up appointment, if applicable. Discharge Plan Admission Admit Date/Time: 07/05/24 19:10 Attending Provider: Shi Alcaraz Primary Care Provider: Care Physician,Makeda Primary Discharge Orders/Prescriptions Prescriptions: No Action hydroxychloroquine [Plaquenil] 200 mg tablet 300 mg PO DAILY Rx Instructions: 1.5 tabs (300mg) orally daily; PNV-[place] 28-1-300 mg capsule 1 cap PO DAILY cyclobenzaprine 10 mg tablet 10 mg PO TID PRN (Reason: muscle spasm) Qty: 30 2RF Referrals / Follow Up: Care Physician,Makeda Primary [Primary Care Provider] - Disposition Disposition (needs filled in before D/C Order can be placed): Home, Self Care
[2024-07-06] MEDS: Naproxen 500 MG Tablet PO (21:02)
[2024-07-06] MEDS: Benzocaine/Lanolin/Aloe Vera 85 GM Spray 1 SPRAY TOPICAL (21:02)
[2024-07-06] MEDS: Dibucaine 30 GM Tube 1 APPLIC TOPICAL (22:09)
[2024-07-06] MEDS: oxyCODONE 5 MG Tablet PO (22:10)
[2024-07-06] MEDS: Rho(D) Immune Globulin 300 MCG (1500 Unit) Syringe IV (23:49)
[2024-07-06] MEDS: 0.9% Saline Lock 10 ML Syringe IV (23:49)
[2024-07-07] VITALS (10 sets, daily range): BP systolic 95–120; BP diastolic 59–77; PULSE 91–109; RESP 16–18; TEMP 36.6–37.1; O2SAT 97–100
[2024-07-07] MEDS: Acetaminophen 500 MG Tablet 1000 MG PO ×2 (00:54→07:05)
[2024-07-07] MEDS: oxyCODONE 5 MG Tablet PO ×4 (03:33→22:08)
[2024-07-07] MEDS: Naproxen 500 MG Tablet PO ×2 (04:08→12:55)
--- NOTE | 2024-07-07 07:32 | PCM.PN.OB ---
Subjective Subjective Patient doing well without complaints. Tolerating PO. Ambulating and voiding without difficulty. feeding well. Denies chest pain, shortness of breath, calf pain/swelling, fevers, chills, lightheadedness. Objective Data Objective Data Vital Signs: Vital Signs Temp Pulse Resp BP Pulse Ox O2 Del Method 98.7 F 109 H 16 115/73 97 Room Air 07/07/24 03:50 07/07/24 03:50 07/07/24 03:50 07/07/24 03:50 07/07/24 03:50 07/07/24 03:50 Oxygen Delivery Method Room Air Weight: 157 lb 8 oz Body Mass Index (BMI) 28.8 Intake & Output: Intake and Output for Last 24 Hours 07/05/24 07/06/24 07/07/24 23:59 23:59 22:59 Intake Total 4.17 / 4.17 3501.67 / 3501.67 Output Total 1700 / 1700 600 / 600 Balance 4.17 / 4.17 1801.67 / 1801.67 -600 / -600 Lab / Micro Data 07/05/24 19:30 Labs: Laboratory Results - last 24 hr 07/06/24 21:10: Screen NEGATIVE, Baby's Blood Type A POSITIVE, Baby's ROSY NEGATIVE ROS Constitutional Constitutional: Reports systems reviewed and no addt'l complaints, except as documented Cardiovascular Cardiovascular: Reports systems reviewed and no addt'l complaints, except as documented Respiratory/Chest Respiratory/Chest: Reports systems reviewed and no addt'l complaints, except as documented Gastrointestinal Gastrointestinal: Reports systems reviewed and no addt'l complaints, except as documented Physical Exam Const alert, oriented x3 and no apparent distress HEENT Head and Scalp: atraumatic Resp normal respiratory effort GI soft to palpation and non-tender Bimanual Exam - Vag & Uterus: uterus non-tender Uterus Palpation: uterus fundus firm (below Umbilicus) Assessment & Plan (1) Vaginal delivery: COMMENT: SM boy Cruz 39 IOL IVF PLAN: Plan s/p PPD # 1 1. routine post delivery care 2. breast feeding- support given 3. rh positive 4. rubella immune
[2024-07-07] MEDS: Senna/Docusate Sodium 1 Tablet PO (10:08)
[2024-07-08] MEDS: Acetaminophen 500 MG Tablet 1000 MG PO ×2 (02:04→13:36)
[2024-07-08] MEDS: Naproxen 500 MG Tablet PO ×2 (02:04→13:35)
[2024-07-08 02:11] VITALS: BP 108/69; PULSE 90
[2024-07-08 02:12] VITALS: BP 108/69; PULSE 86; RESP 18; TEMP 36.5; O2SAT 99
[2024-07-08] MEDS: oxyCODONE 5 MG Tablet PO ×2 (07:34→14:46)
[2024-07-08 08:15] VITALS: BP 110/75; PULSE 71; RESP 14; TEMP 37.1; O2SAT 98
[2024-07-08 08:43] VITALS: BP 110/75; PULSE 85
--- NOTE | 2024-07-08 09:04 | PCM.PN.OB ---
Subjective Subjective Patient doing well without complaints. Tolerating PO. Ambulating and voiding without difficulty. feeding well. Denies chest pain, shortness of breath, calf pain/swelling, fevers, chills, lightheadedness. Objective Data Objective Data Vital Signs: Vital Signs Temp Pulse Resp BP Pulse Ox O2 Del Method 97.7 F L 85 18 110/75 99 Room Air 07/08/24 02:12 07/08/24 08:43 07/08/24 02:12 07/08/24 08:43 07/08/24 02:12 07/08/24 02:12 Oxygen Delivery Method Room Air Weight: 157 lb 8 oz Body Mass Index (BMI) 28.8 Intake & Output: Intake and Output for Last 24 Hours 07/06/24 07/07/24 07/08/24 23:59 22:59 23:59 Intake Total 3501.67 / 3501.67 Output Total 1700 / 1700 600 / 600 Balance 1801.67 / 1801.67 -600 / -600 Lab / Micro Data 07/05/24 19:30 Labs: Laboratory Results - last 24 hr 07/06/24 21:10: Screen NEGATIVE, Baby's Blood Type A POSITIVE, Baby's ROSY NEGATIVE ROS Constitutional Constitutional: Reports systems reviewed and no addt'l complaints, except as documented Cardiovascular Cardiovascular: Reports systems reviewed and no addt'l complaints, except as documented Respiratory/Chest Respiratory/Chest: Reports systems reviewed and no addt'l complaints, except as documented Gastrointestinal Gastrointestinal: Reports systems reviewed and no addt'l complaints, except as documented Physical Exam Const alert, oriented x3 and no apparent distress HEENT Head and Scalp: atraumatic Resp normal respiratory effort GI soft to palpation and non-tender Bimanual Exam - Vag & Uterus: uterus non-tender Uterus Palpation: uterus fundus firm (below Umbilicus) Assessment & Plan (1) Vaginal delivery: COMMENT: SM boy Cruz 39 IOL IVF PLAN: Plan s/p PPD # 2 1. routine post delivery care 2. breast feeding- support given 3. rh positive 4. rubella immune
[2024-07-08] MEDS: Senna/Docusate Sodium 1 Tablet PO (13:35)
[2024-07-08 14:38] VITALS: BP 114/77; PULSE 88
[2024-07-08 14:49] VITALS: BP 114/77; PULSE 88; RESP 16; TEMP 36.6
--- NOTE | 2024-07-12 00:15 | PCM.DC.SUM ---
Providers Date of Admission: 07/05/24 Primary Care Physician: Makeda Primary Care Phys Reason For Visit: INDUCTION Diagnosis Discharge Diagnosis (1) Vaginal delivery: Status: Acute Code(s): O80 - Encounter for full-term uncomplicated delivery Plan s/p PPD # 2 1. routine post delivery care 2. breast feeding- support given 3. rh positive 4. rubella immune Medications at Discharge Home Medications hydroxychloroquine 200 mg tablet (Plaquenil) 300 mg PO DAILY connective tissue disorder 11/28/23 multivit-min no.71-iron fum 28 mg-folate no.1 1 mg-dha 300 mg capsule (PNV-[place]) 1 cap PO DAILY pregnanc 11/28/23 cyclobenzaprine 10 mg tablet 10 mg PO TID PRN muscle spasm #30 tabs 06/16/24 naproxen 500 mg tablet 500 mg PO BID PRN PRN Pain #30 tabs 07/08/24 oxycodone-acetaminophen 5 mg-325 mg tablet (Percocet) 1 tab PO Q6H PRN pain 7 days #10 tabs 07/08/24 Hospital Course Summary of Care Provided Hospital Course: IOL IVF, underwent uncomplicated, routine recovery with stable for dc home ppd 2 Weight / BMI Weight Weight: 157 lb 8 oz Body Mass Index (BMI) 28.8 ABG / Lab / Microbiology Data 07/05/24 19:30 D/C Instructions Discharge Diet: No restrictions May resume sexual activity in: 4-6 weeks Call your doctor if your incision/area has: Continuous Slow Oozing, Sudden Increased Bleeding, Increased Pain/ Swelling, Increased Redness and Foul Smelling Discharge Please Follow Up With: Shi Alcaraz MD When: Call [phone] to make an appointment with your doctor in 6 weeks. If you had elevated blood pressure or 4th degree laceration, you will need to be seen in 2 weeks. Meaningful Use Info Meaningful Use Meaningful Use Diagnoses (Choose all that apply): None applicable Ischemic Stroke Statin Dosing Therapy Reference: STATIN DOSE THERAPY REFERENCE: * Patients > 75 years receive moderate or high dose statin therapy. * Patients 75 years or YOUNGER should receive HIGH intensity statin dose unless contraindicated. You will be required to document reason for non-treatment if statin daily dose does not meet guidelines. HIGH DOSE STATIN THERAPY DAILY Atorvastatin > than or = to 40 mg Rosuvastatin > than or = to 20 mg Amlodipine + Atorvastatin > than or = to 2.5/40 mg Ezetimibe + Simvastatin 10/80 mg Simvastatin 80mg Discharge Plan Admission Admit Date/Time: 07/05/24 19:10 Attending Provider: Sih Alcaraz Primary Care Provider: Care Physician,No Primary Instructions Patient Instructions: After a Vaginal Discharge Orders/Prescriptions Prescriptions: New oxycodone-acetaminophen [Percocet] 5-325 mg tablet 1 tab PO Q6H PRN (Reason: pain) 7 Days Qty: 10 0RF naproxen 500 mg tablet 500 mg PO BID PRN PRN (Reason: Pain) Qty: 30 1RF No Action hydroxychloroquine [Plaquenil] 200 mg tablet 300 mg PO DAILY Rx Instructions: 1.5 tabs (300mg) orally daily; PNV-[place] 28-1-300 mg capsule 1 cap PO DAILY cyclobenzaprine 10 mg tablet 10 mg PO TID PRN (Reason: muscle spasm) Qty: 30 2RF Referrals / Follow Up: Care Physician,No Primary [Primary Care Provider] - Disposition Disposition (needs filled in before D/C Order can be placed): Home, Self Care
--- NOTE | 2024-07-12 00:15 | PCM.DC.SUM ---
Providers Date of Admission: 07/05/24 Primary Care Physician: Makeda Primary Care Phys Reason For Visit: INDUCTION Diagnosis Discharge Diagnosis (1) Vaginal delivery: Status: Acute Code(s): O80 - Encounter for full-term uncomplicated delivery Plan s/p PPD # 2 1. routine post delivery care 2. breast feeding- support given 3. rh positive 4. rubella immune Medications at Discharge Home Medications hydroxychloroquine 200 mg tablet (Plaquenil) 300 mg PO DAILY connective tissue disorder 11/28/23 multivit-min no.71-iron fum 28 mg-folate no.1 1 mg-dha 300 mg capsule (PNV-[place]) 1 cap PO DAILY pregnanc 11/28/23 cyclobenzaprine 10 mg tablet 10 mg PO TID PRN muscle spasm #30 tabs 06/16/24 naproxen 500 mg tablet 500 mg PO BID PRN PRN Pain #30 tabs 07/08/24 oxycodone-acetaminophen 5 mg-325 mg tablet (Percocet) 1 tab PO Q6H PRN pain 7 days #10 tabs 07/08/24 Hospital Course Summary of Care Provided Hospital Course: IOL IVF, underwent uncomplicated, routine recovery with stable for dc home ppd 2 Weight / BMI Weight Weight: 157 lb 8 oz Body Mass Index (BMI) 28.8 ABG / Lab / Microbiology Data 07/05/24 19:30 D/C Instructions Discharge Diet: No restrictions May resume sexual activity in: 4-6 weeks Call your doctor if your incision/area has: Continuous Slow Oozing, Sudden Increased Bleeding, Increased Pain/ Swelling, Increased Redness and Foul Smelling Discharge Please Follow Up With: Shi Alcaraz MD When: Call [phone] to make an appointment with your doctor in 6 weeks. If you had elevated blood pressure or 4th degree laceration, you will need to be seen in 2 weeks. Meaningful Use Info Meaningful Use Meaningful Use Diagnoses (Choose all that apply): None applicable Ischemic Stroke Statin Dosing Therapy Reference: STATIN DOSE THERAPY REFERENCE: * Patients > 75 years receive moderate or high dose statin therapy. * Patients 75 years or YOUNGER should receive HIGH intensity statin dose unless contraindicated. You will be required to document reason for non-treatment if statin daily dose does not meet guidelines. HIGH DOSE STATIN THERAPY DAILY Atorvastatin > than or = to 40 mg Rosuvastatin > than or = to 20 mg Amlodipine + Atorvastatin > than or = to 2.5/40 mg Ezetimibe + Simvastatin 10/80 mg Simvastatin 80mg Discharge Plan Admission Admit Date/Time: 07/05/24 19:10 Attending Provider: Shi Alcaraz Primary Care Provider: Care Physician,No Primary Instructions Patient Instructions: After a Vaginal Discharge Orders/Prescriptions Prescriptions: New oxycodone-acetaminophen [Percocet] 5-325 mg tablet 1 tab PO Q6H PRN (Reason: pain) 7 Days Qty: 10 0RF naproxen 500 mg tablet 500 mg PO BID PRN PRN (Reason: Pain) Qty: 30 1RF No Action hydroxychloroquine [Plaquenil] 200 mg tablet 300 mg PO DAILY Rx Instructions: 1.5 tabs (300mg) orally daily; PNV-[place] 28-1-300 mg capsule 1 cap PO DAILY cyclobenzaprine 10 mg tablet 10 mg PO TID PRN (Reason: muscle spasm) Qty: 30 2RF Referrals / Follow Up: Care Physician,No Primary [Primary Care Provider] - Disposition Disposition (needs filled in before D/C Order can be placed): Home, Self Care
== END 2024-07-08 15:20 | disposition home or self-care (01) | DRG 807 ==
PROVIDERS: Admitting Provider Obstetrics & Gynecology; Referring Provider Obstetrics & Gynecology; Visit Provider Obstetrics & Gynecology
DX: O36.63X0 Maternal care for excessive fetal growth, third trimester, not applicable or unspecified (principal); Z37.0 Single live birth; M35.9 Systemic involvement of connective tissue, unspecified; O99.892 Other specified diseases and conditions complicating childbirth; O26.893 Other specified pregnancy related conditions, third trimester; O99.02 Anemia complicating childbirth; O70.1 Second degree perineal laceration during delivery; Z67.11 Type A blood, Rh negative; Z3A.39 39 weeks gestation of pregnancy; Z79.899 Other long term (current) drug therapy
CPT/HCPCS: 59025; 59050; 85025; 85461; 86780; 86850; 86870; 86900; 86901; 90384; 99221; J7120; A4216; G0378; J2790; J2791

== ENCOUNTER → 2024-08-06 | Outpatient (CLI) | payer OTHER, SELFPAY ==
--- NOTE | 2024-08-06 16:44 | RAD_ITS ---
STUDY: X-RAY - UNILATERAL RIBS ( LEFT ) WITH CHEST REASON FOR EXAM: Female, 29 years old. pain TECHNIQUE - RIBS: 4 view(s) of the ribs. TECHNIQUE - CHEST: Single AP portable view of the chest. COMPARISON: None. FINDINGS - RIBS: Normal visualized ribs without a demonstrated fracture. FINDINGS - CHEST: The lungs are clear and expanded. There is no demonstrated pleural abnormality. Normal size heart. Normal mediastinum and karen. Normal visualized pulmonary arteries. Normal visualized aortic arch and descending thoracic aorta. Normal visualized thoracic spine. Normal visualized ribs, clavicles, and shoulders. There is no demonstrated abnormality of the visualized soft tissue structures of the upper abdomen. RAD/Ribs Uni Min 3V w/PA Chest IMPRESSION: RIBS: Normal x-ray examination of the ribs. CHEST: Normal x-ray examination of the chest. Electronically Signed: Gary Lima MD at 17:55 EST ,
== END | disposition home or self-care (01) ==
LOC: MTRAD 16:44
PROVIDERS: Referring Provider Physician Assistant; Visit Provider Physician Assistant
DX: R07.81 Pleurodynia (principal)
CPT/HCPCS: 71101

== ENCOUNTER 2024-09-10 12:12 | Day surgery (SDC) | payer OTHER, SELFPAY ==
[2024-09-10] VITALS (8 sets, daily range): BP systolic 95–119; BP diastolic 56–83; PULSE 69–80; RESP 16–20; TEMP 36.1–36.4; O2SAT 100; BMI 23.6
[2024-09-10 12:56] LABS: Hematocrit 40.1 % (37-47); Hemoglobin 12.1 g/dL (12.0-15.0); Mean Corp Hgb Conc 30.2 g/dL (32-36); Mean Corpuscular Hgb 24.4 pg (27.0-32.0); Mean Corpuscular Volume 80.8 fL (81-99); Platelet Count 276 K/mm3 (150-450); RBC Distribution Width CV 13.8 % (11.6-14.6); RBC Distribution Width SD 40.2 fl (35.1-43.9); Red Blood Count 4.96 M/mm3 (4.2-5.4); White Blood Count 5.3 K/mm3 (4.4-11.0)
[2024-09-10 13:20] LABS: Internal QC Validated? YES +Cl - CLEAR BKGD; Pregnancy, Urine Negative Negative
--- NOTE | 2024-09-10 14:18 | PRE.ANES_ITS ---
ASA Classification* ASA Classification ASA Classification: 1 Assessment & Plan Anesthesia* Anesthesia Assessment Anesthesia Assessment: Discussed sedation and/or anesthesia options, risks, benefits, and alternatives with patient/parents/legal guardian/POA. Questions invited. The patient/parents/legal guardian/POA seems to understand and agrees to proceed with anesthesia plan. Reviewed the physical assessment, medical history, allergy history and patient home medications list prior to surgery/procedure/anesthetic and documented any changes. Performed airway and anesthesia risk assessments. Anesthesia Type Anesthesia Type: MAC History Source History Obtained from:: Patient and Chart Anesthesia Focused Assessment* Temperature: 97.6 F Pulse Rate: 80 Blood Pressure: 119/83 Respiratory Rate: 16 Pulse Ox: 100 Oxygen Delivery Method: Room Air Airway Assessment Mouth opens: >3 cm Mallampati Score: I Teeth Condition: Intact Neck Range of motion (ROM): Full ROM Focused Labs Anesthesia Preop lab: CBC WBC 5.3 K/mm3 (4.4-11.0) 09/10/24 12:30 RBC 4.96 M/mm3 (4.2-5.4) 09/10/24 12:30 Hgb 12.1 g/dL (12.0-15.0) 09/10/24 12:30 Hct 40.1 % (37-47) 09/10/24 12:30 Plt Count 276 K/mm3 (150-450) 09/10/24 12:30 CHEMISTRY Potassium 3.9 mmol/L (3.5-5.1) 04/27/23 15:24 Sodium 138 mmol/L (136-145) 04/27/23 15:24 Magnesium 2.5 mg/dL (1.6-2.6) 04/27/23 15:24 BUN 8 mg/dL (7-18) 04/27/23 15:24 Creatinine 0.71 mg/dL (0.55-1.02) 04/27/23 15:24 Glucose 100 mg/dL (74-106) 04/27/23 15:24 TSH 1.27 uIU/mL (0.358-3.74) 04/27/23 15:24 COAG Urine Test Negative Negative 09/10/24 12:24 Pre-Assessment Diagnosis/Proposed Procedure Planned Operative Procedure(s): LABIAPLASTY POSS PERINEOPLASTY Anesthesia History 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 When Was Last Pacemaker Check QUESTION #4 FULL TEXT: You/Your Family Experience fever (hyperthermia) with Anesthesia Last Oral Intake Last Oral intake: Last Oral Intake NPO since 00:00 09/10/24 12:36 Meds taken in AM with sips of water? 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 Female Yes 08/30/24 08:21 HX of Motion Sickness No 08/30/24 08:21 HX of N/V After Surgery No 08/30/24 08:21 Non-Smoker Yes 08/30/24 08:21 Duration of Surgery greater Yes 08/30/24 08:21 than 60 minutes Number of Risk Factors 3 08/30/24 08:21 PONV Score Moderate Risk 08/30/24 08:21 Height & Weight Height & Weight: Anesthesia: Height & Weight Height 5 ft 2 in 09/10/24 12:36 Weight: 58.513 kg 09/10/24 12:36 Body Mass Index (BMI) 23.6 09/10/24 12:36 Respiratory Assessment Respiratory Assessment - boiler assistant operator: Respiratory Tract Infection Hx - boiler assistant operator Hx Respiratory Tract Infection No 08/30/24 08:21 STOP Sleep Apnea STOP Sleep Apnea - boiler assistant operator: STOP Sleep Apnea - boiler assistant operator Hx Hypertension No 08/30/24 08:21 Hx Sleep Apnea No 08/30/24 08:21 CPAP BIPAP Do you snore loudly (louder No 08/30/24 08:21 than talking or can be heard Do you often feel tired/ No 08/30/24 08:21 fatigued/ sleepy during daytime? Has anyone observed you stop No 08/30/24 08:21 breathing during sleep? STOP Results Negative 08/30/24 08:21 QUESTION #5 FULL TEXT : Do you snore loudly (louder than talking or can be heard through closed doors)? Tobacco Use History Tobacco Use History - boiler assistant operator: Tobacco Use History - boiler assistant operator Tobacco Use Smoking Status Never smoker 08/30/24 08:21 Hx Tobacco Use No 08/30/24 08:21 Years Smoking Packs Smoked per Day Smoking Cessation Date was within the last 15 years Hx Smoking Cessation Date Hx Smoking Cessation Counseling Hematologic Medial History Hematologic Hx - boiler assistant operator: Hematologic Medical Hx - family specialist Hx of Blood Transfusion No 08/30/24 08:21 Hx of Transfusion in last 3 No 08/30/24 08:21 Months Date of Last Transfusion (if within last 3 months) Ever experience any problems No 08/30/24 08:21 with transfusion(s)? Specify any problems Hx of Preganancy in last 3 Yes 08/30/24 08:21 Months Nurse Filling Out Transfusion DSCHRIBER 08/30/24 08:21 & Questions: Date: 08/30/24 08/30/24 08:21 Time: 08:23 08/30/24 08:21 Patient unable to answer at this time (ie. confused, unrespo /Reproduction History /Reproductive History - boiler assistant operator: /Reproductive Hx- boiler assistant operator Hx Now No 08/30/24 08:21 Gestational Age (in weeks): EDC: Hx Hx Para Hx Section SAB No 08/30/24 08:21 [facility] Medical History Wears contact lenses Restless legs Non-smoker History of edema Strain of chest wall Rib pain on left side Autoimmune connective tissue disorder In vitro fertilization Anemia affecting Home Medications ?Medication ?Instructions ?Recorded ?Last Taken ?Type hydroxychloroquine 200 mg tablet 300 mg PO DAILY connective tissue 11/28/23 07/01/24 History (Plaquenil) disorder multivit-min no.71-iron fum 28 1 cap PO DAILY pregnanc 11/28/23 07/01/24 History mg-folate no.1 1 mg-dha 300 mg capsule (PNV-[place]) estradiol 0.01% (0.1 mg/gram) See Rx Instructions vaginal 11/18/24 Unknown Rx vaginal cream .COMPLEX #42.5 grams Allergy/AdvReac Type Severity Reaction Status Date / Time No Known Allergies Allergy Verified 09/10/24 12:35 Family History Father Diabetes Surgical History Vermillion teeth removed Hx of tonsillectomy Social History adopted: No household members: spouse current occupational status: employed current occupation: [employer] pets and animals: Yes (Avoid litterbox) pets and animals: cat(s) history of recent travel: No sexually active: Yes Smoking Status: Never smoker alcohol intake: current details: not while substance use type: does not use well-balanced diet: daily or most days caffeine: No eating out: 1-3 times/week during the past year weight has: remained stable what type of physical activity do you participate in: none nini/worship: Tenriism seatbelt use: always do you feel safe at home: Yes additional social history: [place]- retired 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
--- NOTE | 2024-09-10 15:39 | HP.PCM_ITS ---
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 Feel stressed/tense/nervous/anxious/difficulty sleeping: not at all Allergies No Known Allergies Allergy (Verified 08/14/24 13:48) Medications ?Medication ?Instructions ?Recorded ?Confirmed ?Type hydroxychloroquine 200 mg tablet 300 mg PO DAILY connective tissue 11/28/23 08/19/24 History (Plaquenil) disorder multivit-min no.71-iron fum 28 1 cap PO DAILY pregnanc 11/28/23 08/19/24 History mg-folate no.1 1 mg-dha 300 mg capsule (PNV-[place]) estradiol 0.01% (0.1 mg/gram) See Rx Instructions vaginal 07/22/24 08/19/24 Rx vaginal cream .COMPLEX #42.5 grams lorazepam 0.5 mg tablet (Ativan) 0.5 mg PO ONCE #2 tabs 08/14/24 08/19/24 Rx Post menopausal: No Patient : No : No FOR[facility]LY [facility] Medical History Strain of chest wall Rib pain on left side Autoimmune connective tissue disorder In vitro fertilization Anemia affecting Surgical History [place] teeth removed Hx of tonsillectomy Family History Father Diabetes Social History adopted: No household members: spouse current occupational status: employed current occupation: L[employer]D [employer] pets and animals: Yes (Avoid litterbox) pets and animals: cat(s) history of recent travel: No sexually active: Yes Smoking Status: Never smoker alcohol intake: current details: not while substance use type: does not use well-balanced diet: daily or most days caffeine: No eating out: 1-3 times/week during the past year weight has: remained stable what type of physical activity do you participate in: none nini/baptist: Baptist seatbelt use: always do you feel safe at home: Yes additional social history: [place]- 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 she denies any foul disharge or odor, normal bowel movements. History 1 Elective abortions Hx Para 1 Spontaneous abortions Hx # Term Pregnancies 1 Ectopic pregnancies Hx # Pregnancies Multiple births # of living children 1 Past Pregnancies Del. Date Name GA/Weeks Outcome Route Bth Weight Infant Gen Labor Lgth Anesthesia Del Locatn Provider FOB 07/06/24 Cruz 39 live - full term 9lbs 9oz Male epidural [facility] [place] Delivery Date: 07/06/24 Last Updated by: Argenis Daly RN See problem list for complications, and SM IOL IVF 39 ROS Const Constitutional: Reports system reviewed and no additional complaints, except as documented GI GI: Reports system reviewed and no additional complaints, except as documented; Denies bloating, constipation, nausea or vomiting : Reports system reviewed and no additional complaints, except as documented; Denies pelvic pain, sexual dysfunction, urinary incontinence, urinary hesitancy, urinary urgency or vaginal discharge Skin Skin/Breast: Reports system reviewed and no additional complaints, except as documented and as per HPI Psych Psych: Reports as per HPI Exam Const General: cooperative, healthy appearing, comfortable and no acute distress HENMT Head: normal to inspection Neck Neck: normal visual inspection and no lymphadenopathy Thyroid: thyroid normal Resp Effort & Inspection: normal respiratory effort GI Inspection: normal to inspection Palpation: soft, no hepatosplenomegaly and nontender External Female Exam: normal appearance of the urethra and other ( inferior labia majora are adhered with a thick connection of 2cm of tissue) Urethra: normal appearance of the urethra Skin General: no rashes or lesions noted Coding Level of Care Code Off vis,est,level 4 Diagnoses Labial adhesion, 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 I have discussed with the patient the risks, benefits, and alternatives of the procedure which include but are not limited to risks of anesthesia, bleeding, infection, possible damage to bowel, bladder, or surrounding vasculature which could lead to additional surgery to evaluate any complications. Patient agrees to procedure and wishes to proceed. ACOG/uptodate references given for additional information regarding procedure. UPDATE- I have seen the patient and performed any clinically relevant updates to the history and physical exam. Shi Alcaraz MD
--- NOTE | 2024-09-10 15:40 | PCM.OPRPT ---
Problems Associated Problem List Diagnoses (1) Labial adhesion, acquired: Operative Report (Standard) Operative Information Date of Procedure: 09/10/24 Pre-Operative Diagnosis: see problem list Post-Operative Diagnosis: same Surgery/Procedure Performed: labiaplasty and perineoplasty house mother: Yes Driver Messenger: Joana Trejo Tasks completed by directory assistance operator: Retracting Type of Anesthesia: MAC RN Documented Start/Stop Times: Operation Date: 09/10/24 13:45 Case Time Into Pre-Op 09/10/24 12:23 Out of Pre-Op 09/10/24 15:53 Anesthesia Start 09/10/24 15:57 Into Room 09/10/24 15:57 Procedure Start 09/10/24 16:16 Procedure End 09/10/24 16:46 Anesthesia End 09/10/24 16:53 Out of Room 09/10/24 16:53 Into Recovery 09/10/24 16:55 Out of Recovery 09/10/24 17:18 Into Phase II Recovery 09/10/24 17:19 Out of Phase II 09/10/24 18:21 Procedure Start Time: 16:16 Procedure Stop Time: 16:46 Select all DRAINS/GRAFTS/IMPLANTS that apply: None (bladder drained at beginning of procedure) Estimated Blood Loss: 25 Specimen collected: No Description of surgery: Patient was placed under MAC anesthesia was prepped and draped in the normal sterile fashion in the dorsolithotomy position. Labia were noted to be adherent in the midline. The joined area was injected with lidocaine and an incision made along the physiologic line with a scalpel and the labia . interrupted sutures placed bilaterally and then the area inspected, digital rectal exam performed to evaluate integrity of previous repair and sphincter tone continuous and normal, no step offs noted. thinning of the perineal body and easy trauma with tearing noted over the body so decision was made to perform a small perineoplasty and reconstruction. incision made and perineal repair done reapproximating the area including one deeper stitch on the right and bringing the bulbocavernosus muscles together, and additional interrupted sutures over the incision line due to gapping of the skin. dermabond placed over the skin.. Surgical Findings: labial agglutination Complications Complications: No
--- NOTE | 2024-09-10 15:42 | PCM.DC ---
Discharge Instructions Diet Discharge Diet: No restrictions DC O2, CPAP, BIPAP needs Home O2 Discharge instructions: No Dressing / Incision Discharge Activity: Return to Normal Activity, May Not Drive (while taking narcotic pain medications.) and May Shower May resume sexual activity in: 4-6 weeks Dressing / Incision Call your doctor if your incision/area has: Continuous Slow Oozing, Sudden Increased Bleeding, Increased Pain/ Swelling, Increased Redness and Foul Smelling Discharge Follow Up Care Please Follow Up With: Shi Alcaraz MD Test Results: Test results from this visit will be discussed in further detail at your follow-up appointment, if applicable. Discharge Plan Admission Attending Provider: Shi Alcaraz Primary Care Provider: Care Physician,Makeda Primary Instructions Print Language: [place] Discharge Orders/Prescriptions Prescriptions: No Action hydroxychloroquine [Plaquenil] 200 mg tablet 300 mg PO DAILY Rx Instructions: 1.5 tabs (300mg) orally daily; PNV-Otho 28-1-300 mg capsule 1 cap PO DAILY estradiol 0.01 % (0.1 mg/gram) cream See Rx Instructions vaginal .COMPLEX Qty: 42.5 2RF Rx Instructions: small amount as directed vaginal every day X 4 weeks then every other day for 4 weeks Referrals / Follow Up: Care Physician,No Primary [Primary Care Provider] - Disposition Disposition (needs filled in before D/C Order can be placed): Home, Self Care
[2024-09-10] MEDS: Cefotetan 2 GM in 0.9% Normal Saline (100mL MB+) 100 ML IV (16:10)
[2024-09-10] MEDS: Lidocaine 1% /Epi 1:100 (20ml) 20 ML Vial (16:28)
[2024-09-10] MEDS: Estrogens,Conj. 1 Tube 1 DOSE (16:29)
--- NOTE | 2024-09-10 16:58 | PCM.POST.ANE ---
Anesthesia: Postop Eval I Current Vital Signs Temperature: 97 F Pulse Rate: 73 Blood Pressure: 95/56 Respiratory Rate: 20 Pulse Ox: 100 Oxygen Delivery Method: Room Air Assessment Airway patent: Yes Spontaneous unlabored respirations: Yes Mental status: Awake nausea: No Vomiting: No Anesthesia Complication: No Fluid Hydration Crystalloid volume administer (ml): 700 Total IV fluid infused: 700 Progress Note Anesthesia document: Postop Eval 1 completed: Yes
[2024-09-10] MEDS: HYDROcodone Bitartrate/Apap 5/325 Tablet PO (17:48)
--- NOTE | 2024-09-10 20:03 | POSTOPAN2_ITS ---
Anesthesia Postop Eval I Sum Postop Eval Completion status Anesthesia document: Postop Eval 1 completed: Yes Anesthesia Postop Eval I Summary Anesthesia Postop Eval I Summary: Anesthesia Postop Eval I: Assessment Summary Airway patent Yes 09/10/24 17:00 FOOTWEAR SALES COORDINATOR.[email or web address] Spontaneous unlabored Yes 09/10/24 17:00 FOOTWEAR SALES COORDINATOR.JSWI respirations Mental status Awake 09/10/24 17:00 FOOTWEAR SALES COORDINATOR.[email or web address] nausea No 09/10/24 17:00 FOOTWEAR SALES COORDINATOR.JSWI Vomiting No 09/10/24 17:00 FOOTWEAR SALES COORDINATOR.JSWI Anesthesia Postop Eval I: Fluid Summary Crystalloid volume administer 700 09/10/24 17:00 FOOTWEAR SALES COORDINATOR.JSWI (ml) Colloids volume administered ( ml) Blood Product volume administered (ml) Total IV fluid infused 700 09/10/24 17:00 FOOTWEAR SALES COORDINATOR.[email or web address] Anesthesia Postop Eval I: Summary Notes Anesthesia Complication No 09/10/24 17:00 FOOTWEAR SALES COORDINATOR.JSWI Anesthesia Complication Comment: Post-operative progress note Anesthesia: Postop Eval II Evaluation Mental status: Awake and Calm Pain Level: 1 nausea: No Vomiting: No Complications Anesthesia Complication: No
--- NOTE | 2024-09-10 20:03 | PCM.POSTANE2 ---
Anesthesia Postop Eval I Sum Postop Eval Completion status Anesthesia document: Postop Eval 1 completed: Yes Anesthesia Postop Eval I Summary Anesthesia Postop Eval I Summary: Anesthesia Postop Eval I: Assessment Summary Airway patent Yes 09/10/24 17:00 HUMAN RESOURCES OPERATIONS SPECIALIST.[email or web address] Spontaneous unlabored Yes 09/10/24 17:00 HUMAN RESOURCES OPERATIONS SPECIALIST.JSWI respirations Mental status Awake 09/10/24 17:00 HUMAN RESOURCES OPERATIONS SPECIALIST.JSWI nausea No 09/10/24 17:00 HUMAN RESOURCES OPERATIONS SPECIALIST.JSWI Vomiting No 09/10/24 17:00 HUMAN RESOURCES OPERATIONS SPECIALIST.JSWI Anesthesia Postop Eval I: Fluid Summary Crystalloid volume administer 700 09/10/24 17:00 HUMAN RESOURCES OPERATIONS SPECIALIST.JSWI (ml) Colloids volume administered ( ml) Blood Product volume administered (ml) Total IV fluid infused 700 09/10/24 17:00 HUMAN RESOURCES OPERATIONS SPECIALIST.OZWI Anesthesia Postop Eval I: Summary Notes Anesthesia Complication No 09/10/24 17:00 HUMAN RESOURCES OPERATIONS SPECIALIST.JSWI Anesthesia Complication Comment: Post-operative progress note Anesthesia: Postop Eval II Evaluation Mental status: Awake and Calm Pain Level: 1 nausea: No Vomiting: No Complications Anesthesia Complication: No
== END 2024-09-10 18:21 | disposition home or self-care (01) ==
LOC: SDC 12:13 → AC 12:15
PROVIDERS: Referring Provider Obstetrics & Gynecology; Visit Provider Obstetrics & Gynecology
PROC: (CPT 56620; principal; 2024-09-10 13:30)
DX: N90.89 Other specified noninflammatory disorders of vulva and perineum (principal)
CPT/HCPCS: 56620; 56810; 00906; 81025; 85027; 86850; 86870; 86900; 86901; A4216

== ENCOUNTER 2025-09-01 08:00 | Outpatient (RCR) | payer OTHER, SELFPAY ==
--- NOTE | 2025-02-11 17:23 | HP.PTEVAL ---
Patient's Visit Information Visit Information Visit Information: MARIA A GUEVARA is a 30 year old F referred to Physical Therapy by Dr. Shi Alcaraz MD with a diagnosis of Dyspareunia, unspecified incontinence R32 , N90.89. Date of Evaluation: 02/11/25 Physical Therapist: Breann Fernandez Visit Plan Frequency: 1-2x /Week Duration: 3 Months Plan: Maria A would benefit from skilled PT intervention to address her pelvic floor tightness and pain with penetration. We will initially work on stretching and relaxation techniques with the use of dilators at home as well to supplement the manual therapy in treatments. We will eventually progress to strengthening to address her control and incontinence once the tightness more resolved. Continue 1-2 x week. Continue pelvic floor work to address tightness bilaterally. Will initiate strengthening once tightness more resolved. Has she ordered dilators and started using? How is she doing with deep breathing for pelvic floor relaxation? Subjective Subjective: She had her first baby in July 9 lbs 9oz. She had 2 tears and 2 internal vaginal tears. As that was healing she was having pain. Labial agglutination (fusing of labia minora). The bottom part of the labia was fused. Perinealplasty in September and labioplasty. Has healed well. She still feels like things are tight. She has attempted intercourse but feels like a brick wall of knives. Outside is very sensitive. 8/10 she just has to stop. Incontinence with coughing , sneezing etc. She would hear running water she would urinate initially . Pantiliner most days. She doesn't have urgency or frequency problems. She has low back pain and hip pain since having her baby. Pain is central spine and both hips, anterior groins. Worse after a work shift. Pain averages 3-5/10. Nagging. No sciatica since . 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 She was straining a lot with bowel movements initially . Pain with a bowel movements. She goes back and forth between constipation. She had to do IVF and she is wondering how she will tolerate all the vaginal exams and procedures at this point given her pain with penetration. Speculum exams and transvaginal USs have never been comfortable. She wants to start IVF beginning of next year. Multiple connective tissue disorder. Plaquenil in 2022. Pain vaginal pain: Pain Intensity (Out of 10): 0 Pain Intensity Range: 8 Objective Objective: POPDI-6 2, CRAD-8 9, RODDY-6 5 LAYCOCK 10/10/10/06 -DIFFICULTY RELAXING BETWEEN CONTRACTIONS - DIMINISHED CONTRACTION RIGHT SIDE MODERATE PELVIC FLOOR TIGHTNESS BILATERALLY - VERY TENDER AT INTROITUS RECTOCELE 1 Goals Goal 1:: Maria A will be able to tolerate a gynecological exam using a medium sized speculum or transvaginal ultrasound without pain. Goal Time Frame: 8-12 Weeks Goal 2:: Maria A will be able to cough and sneeze without leaking. Goal Time Frame: 8-12 Weeks Goal 3:: Maria A will be able to have bowel movements without pain. Goal Time Frame: 4-6 Weeks Goal 4:: Maria A will be able to tolerate a work shift with 75% less pain overall. Goal Time Frame: 8-12 Weeks Rehabilitation Potential Physical Therapy Diagnosis: Dyspareunia, stress incontinence , low back pain , unspecified Rehabilitation Potential: Excellent Anticipated Interventions Patient/Client Instruction: Educate patient on: Condition and Plan of Care For the Purpose of:: To decrease pain, To improve muscle performance and motor function and To improve self management Therapeutic Exercise to Include: Strength training, Neuromotor development and Relaxation training For the Purpose of:: To improve muscle performance and motor function, To improve health and function and To improve self management Manual Therapy Techniques to Include: Trigger point massage, Mobilization and Soft tissue mobilization For the Purpose of:: To improve muscle performance and motor function, To improve health of tissue, To decrease soft tissue restriction, To improve health and function and To improve self management Text: Thank you for the opportunity to evaluate your patient. For Medicare and Medicare HMO plans, please review the plan of care and approve it. It will need to be FAXED BACK to us at [phone] for Medicare purposes. For Medicare only, by signing this I certify the plan of care. Please let me know if there are questions or concerns regarding this plan of care. Physician Signature: Date:
--- NOTE | 2025-07-09 13:37 | HP.PTREVAL_ITS ---
Re-Evaluation Intro: Dr. Shi Alcaraz MD, It has been my pleasure to treat MARIA A GUEVARA over the last 20 visits for Dyspareunia, unspecified incontinence R32 , N90.89. Please see the progress note below for an update on the physical therapy plan of care! Subjective Subjective: Overall she feels 60-70% improvement overall. [place] pain is greatly improved but still noticeable but milder (initially 4/10 but can lessen to 1-2/10). Her body adjusts faster to tolerating intercourse than it used to. Incontinence is also improved and she finds a sneeze is her biggest challenge still . She continues to wear a pantiliner when she is out of the house in case of leakage. She declines internal pelvic floor work today due to being on her period. Objective Objective/Function: Adjusting plan of care today to include more visits. Increasing to 25-30 visits but beginning to space out visits working towards greater independence. Her dyspareunia and pelvic floor tightness continue to improve and tightness lessening gradually. Plan Plan Plan: Maria A would benefit from skilled PT intervention to address her pelvic floor tightness and pain with penetration. We will initially work on stretching and relaxation techniques with the use of dilators at home as well to supplement the manual therapy in treatments. We will eventually progress to strengthening to address her control and incontinence once the tightness more resolved. Spacing out visits and will see in around 1 month. Continue supine traction? How did she respond to deeper pelvic floor manual therapy? Continue work on belly (tender area at rectus abdominis) Continue work on lumbar, hips. She has full 7 week program. Continue work on tailbone, buttocks, hips. Has she tried ball exercises? Show her tubing band exercises next week as well for core stability. Roller? Goals Goals Goal 1:: Maria A will be able to tolerate a gynecological exam using a medium sized speculum or transvaginal ultrasound without pain. 07/09/25 65% improved. Deep , sharp pain on the left side mostly. (-12/12) Goal Time Frame: 8-12 Weeks Goal Progress: Progressing Goal 2:: Maria A will be able to cough and sneeze without leaking. 07/09/25 She still feels like she has to cross her legs or brace herself to sneeze. She still wears a pantiliner when she is not home. 50% improved overall. Goal Time Frame: 8-12 Weeks Goal Progress: Progressing Goal 3:: Maria A will be able to have bowel movements without pain. 07/09/25 At least 80% improved overall. Goal Time Frame: 4-6 Weeks Goal Progress: Progressing Goal 4:: Maria A will be able to tolerate a work shift with 75% less pain overall. 07/09/25 Low back pain is averaging at least 50% improved overall. Depends on her shift and what she is doing but her back pain averages 2-4/10. Goal Time Frame: 8-12 Weeks Anticipated Interventions Anticipated Interventions Patient/Client Instruction: Educate patient on: Condition and Plan of Care For the Purpose of:: To decrease pain, To improve muscle performance and motor function and To improve self management Therapeutic Exercise to Include: Strength training, Neuromotor development and Relaxation training For the Purpose of:: To improve muscle performance and motor function, To improve health and function and To improve self management Manual Therapy Techniques to Include: Trigger point massage, Mobilization and Soft tissue mobilization For the Purpose of:: To improve muscle performance and motor function, To improve health of tissue, To decrease soft tissue restriction, To improve health and function and To improve self management Re-Evaluation Ending Re-evaluation ending: Please do not hesitate to contact me at [phone] by phone or if you have questions or concerns regarding this new plan of care! Sincerely, Breann Fernandez
--- NOTE | 2025-09-01 09:08 | HP.PTDCSUM ---
Discharge Summary D/C summary: It has been my pleasure to treat MARIA A GUEVARA referred by Dr. Shi Alcaraz MD, with the diagnosis of Dyspareunia, unspecified incontinence R32 , N90.89 for a total of 23 visit(s). Discharge Date: 09/01/25 Please see the following information for a summary of their discharge status. Subjective Subjective: She feels about 70% improved overall in PT. Today will be her last visit due to insurance change. She is very pleased with her results in PT. Pain vaginal pain: Pain Intensity (Out of 10): 2 Overall Improvement % Improvement: 80 Objective Objective/Function: Maria A responded very well to pelvic floor PT. She reports improvement in all areas of dyspareunia, incontinence and her low back pain. She will not be continuing PT due to insurance changes. She is equipped to continue the exercises and program on her own at home. She has met her goals 50-80% overall. Her pelvic floor tightness continues mildly and mainly localized to the left side layers 1-2. Goals Goal 1:: Maria A will be able to tolerate a gynecological exam using a medium sized speculum or transvaginal ultrasound without pain. 07/09/25 65% improved. Deep , sharp pain on the left side mostly. (-12/12) 09/01/25 75% improved. Deep, sharp pain on the left side continues (-12/12) Goal Progress: Progressing Goal 2:: Maria A will be able to cough and sneeze without leaking. 07/09/25 She still feels like she has to cross her legs or brace herself to sneeze. She still wears a pantiliner when she is not home. 50% improved overall. 09/01/25 Coughing is fine without leaking. Sneezing still causes incontinence. If her bladder is not full, she can control 90%. Goal Progress: Progressing Goal 3:: Maria A will be able to have bowel movements without pain. 07/09/25 At least 80% improved overall. 09/01/25 At least 80% improved overall but she still feels discomfort Goal Progress: Progressing Goal 4:: Maria A will be able to tolerate a work shift with 75% less pain overall. 07/09/25 Low back pain is averaging at least 50% improved overall. Depends on her shift and what she is doing but her back pain averages 2-4/10. 09/01/25 No significant change here and low back pain about the same depending on the day. Plan Plan: D/C from PT D/C Information Discharge Comments: She will continue the exercises on her own. D/C from PT. d/c sentence: If there are questions or concerns regarding this patient's physical therapy, please feel free to call me at [phone]. Thank you for the referral of this patient. Sincerely, Breann Fernandez Balance/Gait/Functional tests Improvement % Improvement: 80
== END 2025-09-01 10:48 | disposition home or self-care (01) ==
LOC: PT 08:00
PROVIDERS: Referring Provider Obstetrics & Gynecology; Visit Provider Obstetrics & Gynecology
DX: N90.89 Other specified noninflammatory disorders of vulva and perineum (principal); R32 Unspecified urinary incontinence
CPT/HCPCS: 97012; 97110; 97112; 97140; 97162; 97530